=== PATIENT | male | born 2000 | race Caucasian/White ===

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

== ENCOUNTER 2022-05-11 13:36 | Emergency (ER) | payer BC, OTHER ==
[2022-05-11 14:12] VITALS: BP 133/95; PULSE 125; RESP 20; TEMP 98.6
--- NOTE | 2022-05-11 14:54 | ED ---
General Adult HPI - General Source: patient Mode of arrival: ambulatory Limitations: no limitations <PortillotimothyKermit Christina - Last Filed: 05/11/22 14:54> <Spike Mendosa - Last Filed: 05/11/22 16:30> - General Chief complaint: Psychiatric Symptoms Stated complaint: EPS, to be petitioned Time Seen by Provider: 05/11/22 14:37 - History of Present Illness Initial comments: Dictation was produced using [employer] dictation software. please excuse any grammatical, word or spelling errors. Chief Complaint: 22-year-old male petition by father for mental health evaluation History of Present Illness: 22-year-old male presents emergency department for mental health evaluation. His petition by his father. According to the petition states that patient has been showing erratic behavior having paranoid behavior and doing dangerous acts. He's been seen about the house walking around with dangerous objects including knives and baseball bats. He also states according to the petition the patient's suicidal. Patient denies any others. He understands that he is here to be evaluated. Patient denies any thoughts of people out to get him. He denies any suicidality or homicidality. Denies any visual or auditory hallucinations. Patient has no medical complaints. Patient states he knows that he is acting this way because of methamphetamine use. The ROS documented in this emergency department record has been reviewed and confirmed by me. Those systems with pertinent positive or negative responses have been documented in the HPI. All other systems are other negative and/or noncontributory. PHYSICAL EXAM: General Impression: Alert and oriented x3, not in acute distress HEENT: Normocephalic atraumatic, extra-ocular movements intact, pupils equal and reactive to light bilaterally, mucous membranes moist. Cardiovascular: Heart regular rate and rhythm Chest: Able to complete full sentences, no retractions, no tachypnea Abdomen: abdomen soft, non-tender, non-distended, no organomegaly Musculoskeletal: Pulses present and equal in all extremities, no peripheral edema Motor: no focal deficits noted Neurological: CN II-XII grossly intact, no focal motor or sensory deficits noted Skin: Intact with no visualized rashes Psych: Normal affect and mood ED course: 22-year-old male presents emergency department for EPS evaluation. Patient has petition filled out by his father for mental health evaluation. Vital signs upon arrival are within acceptable limits. (Kermit Beckham) - Related Data Home Medications Medication Instructions Recorded Confirmed No Known Home Medications 05/11/22 05/11/22 Allergies Allergy/AdvReac Type Severity Reaction Status Date / Time No Known Allergies Allergy Verified 05/11/22 16:15 Review of Systems ROS Other: All systems not noted in ROS Statement are negative. <Kermit Beckham - Last Filed: 05/11/22 14:54> ROS Other: All systems not noted in ROS Statement are negative. <Spike Mendosa - Last Filed: 05/11/22 16:30> ROS Statement: Those systems with pertinent positive or pertinent negative responses have been documented in the HPI. Past Medical History Past Medical History: No Reported History History of Any Multi-Drug Resistant Organisms: None Reported Additional Past Surgical History / Comment(s): facial plastic surgery Past Anesthesia/Blood Transfusion Reactions: No Reported Reaction Past Psychological History: ADD/ADHD Smoking Status: Vaper Past Alcohol Use History: Occasional Past Drug Use History: Marijuana, Methamphetamine <Kermit Beckham - Last Filed: 05/11/22 14:54> General Exam Limitations: no limitations <Kermit Beckham - Last Filed: 05/11/22 14:54> Course Vital Signs 05/11/22 14:09 Temperature 98.6 F Pulse Rate 125 H Respiratory 20 Rate Blood Pressure 133/95 O2 Sat by Pulse 99 Oximetry Medical Decision Making <Spike Mendosa - Last Filed: 05/11/22 16:30> - Medical Decision Making The patient was seen by previous shift. His urine drug screen came back for amphetamines, methamphetamines, and cocaine. He was seen by psychiatry. He apparently relates to them that he was doing methamphetamines prior to coming in and they feel as though he is paranoid related to this. They feel as though he is back to baseline at this time and that he is stable for discharge home. Patient was counseled regarding drug abuse. Return parameters are discussed. Close follow-up recommended. (Spike Mnedosa) - Lab Data Lab Results 05/11/22 Range/Units 14:57 Urine Opiates Screen Not Detected (NotDetected) Ur Oxycodone Screen Not Detected (NotDetected) Urine Methadone Screen Not Detected (NotDetected) Ur Propoxyphene Screen Not Detected (NotDetected) Ur Barbiturates Screen Not Detected (NotDetected) U Tricyclic Antidepress Not Detected (NotDetected) Ur Phencyclidine Scrn Not Detected (NotDetected) Ur Amphetamines Screen Detected H (NotDetected) U Methamphetamines Scrn Detected H (NotDetected) U Benzodiazepines Scrn Not Detected (NotDetected) Urine Cocaine Screen Detected H (NotDetected) U Marijuana (THC) Screen Not Detected (NotDetected) Disposition <Kermit Beckham - Last Filed: 05/11/22 14:54> Is patient prescribed a controlled substance at d/c from ED?: No Time of Disposition: 16:30 <Spike Mendosa - Last Filed: 05/11/22 16:30> Clinical Impression: Methamphetamine abuse, Amphetamine abuse, Cocaine abuse, Paranoid Disposition: HOME SELF-CARE Condition: Good Instructions (If sedation given, give patient instructions): Polysubstance Abuse (ED) Referrals: Nonstaff,Physician [Primary Care Provider] - 1-2 days
[2022-05-11 15:40] LABS: Amphetamine Screen,Urine Detected (NotDetected); Cocaine Screen,Urine Detected (NotDetected); Opiate Screen,Urine Not Detected (NotDetected); Phencyclidine Screen,Urine Not Detected (NotDetected); Urn Cannabinoid Scrn Not Detected (NotDetected)
[2022-05-11 15:41] LABS: Barbiturate Screen,Urine Not Detected (NotDetected); Benzodiazepines Screen,Urine Not Detected (NotDetected); Methadone Screen, Urine Not Detected (NotDetected); Oxycodone Screen, Urine Not Detected (NotDetected); Tricyclic Antidepressant,Urine Not Detected (NotDetected)
== END 2022-05-11 17:17 | disposition home or self-care (01) ==
LOC: EC 13:36
DX: F15.10 Other stimulant abuse, uncomplicated (principal); F14.10 Cocaine abuse, uncomplicated; F60.0 Paranoid personality disorder; F17.209 Nicotine dependence, unspecified, with unspecified nicotine-induced disorders
CPT/HCPCS: 80306; 82075; 99284